=== PATIENT | female | born 1995 | race Native Hawaiian/Other Pacific Islander ===

== ENCOUNTER 2017-07-27 13:23 | Outpatient (CLI) | payer OTHER ==
[~2017-07-27 13:23] MED LIST: ACID REDUCER150 MG PO; CEPH500C20 PO; HM ASPIRIN EC325 MG PO; HYDR25TA15 PO; PREDNISONE10 M1 PO; ZITHROMAX500 MG PO; ZYRTEC ALLGY10 MG PO
== END 2017-07-27 14:25 | disposition home or self-care (01) ==
LOC: LABW 13:23
DX: O20.0 Threatened abortion (principal)
CPT/HCPCS: 36415; 84702

== ENCOUNTER 2017-07-29 08:58 | Outpatient (CLI) | payer OTHER | END 2017-07-29 10:00 | disposition home or self-care (01) | LOC: LABW 08:58 | DX: O20.0 Threatened abortion (principal) | CPT/HCPCS: 36415; 84702 ==

== ENCOUNTER 2017-12-21 10:17 | Outpatient (CLI) | payer OTHER | END 2017-12-21 21:27 | disposition home or self-care (01) | LOC: LABW 10:17 | DX: N91.2 Amenorrhea, unspecified (principal) | CPT/HCPCS: 36415; 84702 ==

== ENCOUNTER 2017-12-23 08:41 | Outpatient (CLI) | payer OTHER | END 2017-12-23 22:44 | disposition home or self-care (01) | LOC: LABW 08:41 | DX: N91.2 Amenorrhea, unspecified (principal) | CPT/HCPCS: 36415; 84702 ==

== ENCOUNTER 2017-12-27 08:45 | Outpatient (CLI) | payer OTHER ==
[2017-12-27 08:54] LABS: PLATELET COUNT 264 K/uL (152-353)
== END 2017-12-27 19:14 | disposition home or self-care (01) ==
LOC: LABW 08:45
PROVIDERS: Obstetrics & Gynecology
DX: N91.2 Amenorrhea, unspecified (principal); R42 Dizziness and giddiness
CPT/HCPCS: 36415; 84702; 85027

== ENCOUNTER 2017-12-29 08:27 | Outpatient (CLI) | payer OTHER | END 2017-12-29 23:29 | disposition home or self-care (01) | LOC: LABW 08:27 | DX: N91.2 Amenorrhea, unspecified (principal) | CPT/HCPCS: 36415; 84702 ==

== ENCOUNTER 2018-01-11 12:07 | Outpatient (CLI) | payer OTHER | END 2018-01-11 23:21 | disposition home or self-care (01) | LOC: LABW 12:07 | DX: N91.2 Amenorrhea, unspecified (principal) | CPT/HCPCS: 36415; 84702 ==

== ENCOUNTER 2021-11-02 11:26 | Emergency (ER) | payer OTHER ==
[~2021-11-02] VITALS: Ht 167.6 cm; Wt 113.4 kg
[2021-11-02 11:36] VITALS: BP 142/75; TEMP 99.1
[2021-11-02 12:01] LABS: PLATELET COUNT 245 K/uL (152-353)
== END 2021-11-02 13:27 | disposition home or self-care (01) ==
LOC: ED 11:26
PROVIDERS: Emergency Medicine
DX: O20.8 Other hemorrhage in early pregnancy (principal); Z3A.10 10 weeks gestation of pregnancy
CPT/HCPCS: 80053; 81000; 84702; 85027; 85610; 99283

== ENCOUNTER 2023-03-01 16:21 | Emergency (ER) | payer OTHER ==
[~2023-03-01] VITALS: Ht 167.6 cm; Wt 118.8 kg
[2023-03-01 16:57] LABS: PLATELET COUNT 206 K/uL (152-353)
[2023-03-01 17:04] LABS: POTASSIUM 3.8 mmol/L (3.6-5.2)
[2023-03-01 17:35] VITALS: BP 124/73; TEMP 98.2
== END 2023-03-01 17:35 | disposition home or self-care (01) ==
LOC: ED 16:21
PROVIDERS: Family Medicine
DX: R55 Syncope and collapse (principal); R42 Dizziness and giddiness; Z3A.31 31 weeks gestation of pregnancy
CPT/HCPCS: 36415; 80053; 81002; 85027; 93005; 96360; 99284